=== PATIENT | female | born 1950 | race Caucasian/White ===

== ENCOUNTER → 2017-08-07 | Outpatient (CLI) | payer MEDICARE ==
--- NOTE | 2017-08-14 08:26 | MM ---
Reason for exam: additional evaluation requested from prior study. Last mammogram was performed 13 years and 1 month ago. History: Patient is postmenopausal and has history of high-risk lesion on a previous biopsy at age 54. Benign stereotactic core biopsy of the right breast, 2014. High risk right mammotome panel of the right breast, August 31, 2004. Reduction of the left breast. Reduction of the right breast. Took estrogen for 15 years. Took antineoplastic for 5 years beginning at age 54. Physical Findings: Nurse Summary: 1cm nodule in the left breast at 4 o'clock (nurse dw). MG 3D Diag Mammo W/Cad KAMILAH Bilateral CC and MLO view(s) were taken. Prior study comparison: July 22, 2014, mammogram, performed at [facility]. December 30, 2008, mammogram, performed at [facility]. Post surgical changes in the right breast. No significant new findings when compared with previous films. These results were verbally communicated with the patient and result sheet given to the patient on 08/13/17. ASSESSMENT: Benign, BI-RAD 2 RECOMMENDATION: Routine screening mammogram of both breasts in 1 year. Manage on a clinical basis with regard to left palpable abnormality.
--- NOTE | 2017-08-14 08:29 | USB ---
Reason for exam: additional evaluation requested from prior study. History: Patient is postmenopausal and has history of high-risk lesion on a previous biopsy at age 54. Benign stereotactic core biopsy of the right breast, 2015. High risk right mammotome panel of the right breast, August 31, 2004. Reduction of the left breast. Reduction of the right breast. Took estrogen for 15 years. Took antineoplastic for 5 years beginning at age 54. US Breast Limited LT Left limited breast ultrasound including focal area of concern, retroareolar and axilla demonstrates a 0.7 x 0.4 x 0.9cm cystic lesion at 4 o'clock, echoes within, somewhat anterior to expected palpable. These results were verbally communicated with the patient and result sheet given to the patient on 08/13/17. ASSESSMENT: Probably benign, BI-RAD 3 RECOMMENDATION: Ultrasound of the left breast in 6 months. Manage on a clinical basis with regard to left palpable abnormality.
== END | disposition home or self-care (01) ==
LOC: RADMAMWWP 08:50
PROVIDERS: ATTEND Family Medicine
DX: Z08 Encounter for follow-up examination after completed treatment for malignant neoplasm (principal); Z85.3 Personal history of malignant neoplasm of breast
CPT/HCPCS: 77066; 76642; G0279; 77062

== ENCOUNTER → 2017-08-08 | Outpatient (CLI) | payer MEDICARE ==
--- NOTE | 2017-08-08 17:29 | XR ---
EXAMINATION TYPE: XR chest 2V DATE OF EXAM: 08/08/2017 COMPARISON: 07/01/2013 HISTORY: 67-year-old female annual physical, asthma TECHNIQUE: Frontal and lateral views FINDINGS: Heart normal size. Mild elongation thoracic aorta. Mild interstitial prominence is unchanged. No cons olidation or pleural effusion. IMPRESSION: Chronic changes without acute cardiopulmonary process.
== END | disposition home or self-care (01) ==
LOC: RADXRMAIN 12:47
PROVIDERS: ATTEND Family Medicine
DX: J45.31 Mild persistent asthma with (acute) exacerbation (principal)
CPT/HCPCS: 71046

== ENCOUNTER → 2017-10-18 | Outpatient (CLI) | payer MEDICARE ==
[2017-10-18 14:25] VITALS: BMI 29.8
--- NOTE | 2017-10-18 15:03 | P.GSHP ---
History of Present Illness H&P Date: 10/18/17 The patient is a 67-year-old white female who presents for breast evaluation. 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 She had wide excision of this area and then reexcision after being seen for a second opinion. Following the reexcision she took tamoxifen for 5 years. She did not have radiation to the breast. She did have bilateral breast reductions done in 1989. She also had a benign stereotactic right breast biopsy in 2014. The patient most recently had a mammogram [id number]. This mammogram had no significant new findings compared to old films however the nurse felt a 1 cm nodule in the left breast at 4:00. An ultrasound of the left breast was then performed which revealed a 0.9 cm cystic lesion at 4:00 felt to be somewhat anterior to the expected palpable lesion. This was felt to be probably benign an ultrasound of the left breast in 6 months was recommended. The patient states that she did have some trauma to the left breast prior to the ultrasound where she bumped the breast and it became ecchymotic. The patient has no nipple discharge or changes. The patient drinks 2-3 cups of coffee per day. The patient rarely eats chocolate. She does not drink soda. She does not smoke and does not live with a smoker. Family history: 1. mother: colon cancer 2. father: laryngeal cancer 3. maternal grandmother: bladder cancer 4. paternal grandmother: cervical cancer 5. 4 siblings wiht skin cancer 6. of esophageal cancer exposed to agent orange Hormonal History: menarche: 12 : 3, 2 children, first at 23, breast fed: yes menopause: MICHAEL, still has ovaries, started menopause at 40 BCP: yes about 13 years Estrogen:took estrogen for 15 years Past surgical history: 1. tonsil and adenoids 2. total abdominal hysterectomy 3. breast reduction, bilateral 4. lumpectomy and re-excision 5. left knee 2008 Past Medical History: 1. pneumonia 2. asthma 3. back pain Social History: smoke: no alcohol: no drugs: no - Constitutional Constitutional: Denies chills, Denies fever - EENT Eyes: denies blurred vision, denies pain Ears: right: decreased hearing, deny: tinnitus Ears, nose, mouth and throat: Denies headache, Denies sore throat - Breasts Breasts: bilateral: as per HPI - Cardiovascular Cardiovascular: Reports high blood pressure, Denies chest pain, Denies shortness of breath - Respiratory Comment: history of pneumonia, asthma Respiratory: Denies cough, Denies 7 - Gastrointestinal Comment: last colonoscopy done 1 year ago all [place] Gastrointestinal: Denies abdominal pain, Denies diarrhea, Denies nausea, Denies vomiting - Genitourinary (Female) Genitourinary: Denies dysuria, Denies hematuria - Musculoskeletal Comment: arthritis and back pain - Integumentary Integumentary: Denies pruritus, Denies rash - Neurological Neurological: Denies numbness, Denies weakness - Psychiatric Psychiatric: Reports depression, Denies anxiety - Endocrine Endocrine: Denies fatigue, Denies weight change - Hematologic/Lymphatic Comment: no blood thinners, bleeds easily - Allergic/Immunologic Allergic/Immunologic: Reports seasonal allergies Past Medical History Past Medical History: Asthma, GERD/Reflux, Hyperlipidemia, Hypertension, Pneumonia History of Any Multi-Drug Resistant Organisms: None Reported Past Surgical History: Adenoidectomy, Breast Surgery, Hysterectomy, Tubal Ligation Additional Past Surgical History / Comment(s): BREAST REDUCTION , BREAST SURGERY X2 Past Anesthesia/Blood Transfusion Reactions: Postoperative Nausea & Vomiting ( PONV) Additional Past Anesthesia/Blood Transfusion Reaction / Comment(s): "TAKES LONGER WAKING UP" Smoking Status: Never smoker - Past Family History Mother Family Medical History: Cancer Additional Family Medical History / Comment(s): COLON CANCER Father Family Medical History: Cancer Additional Family Medical History / Comment(s): LARYNGEAL CANCER Medications and Allergies Home Medications Medication Instructions Recorded Confirmed Type Albuterol Inhaler [Ventolin Hfa 1 - 2 puff INHALATION Q6HR PRN 12/28/15 History Inhaler] Ezetimibe [Zetia] 10 mg PO DAILY 12/28/15 10/18/17 History Lovastatin [Mevacor] 40 mg PO DAILY 12/28/15 10/18/17 History Mometasone Furoate [Asmanex Hfa] 1 puff INHALATION DAILY 12/28/15 10/18/17 History Multivitamins, Thera [Multivitamin] 1 tab PO DAILY 12/28/15 10/18/17 History Omeprazole [PriLOSEC] 20 mg PO [facility] 12/28/15 10/18/17 History Ubidecarenone [Co Q-10] 100 mg PO DAILY 12/28/15 10/18/17 History Valsartan/Hydrochlorothiazide 1 each PO DAILY 12/28/15 10/18/17 History [Valsartan-Hctz 160-25 mg Tab] Allergies Allergy/AdvReac Type Severity Reaction Status Date / Time adhesive tape Allergy BLISTERS,RED Verified 12/29/15 11:18 SKIN Milk Containing Products Allergy HEADACHE Verified 12/29/15 11:18 Surgical - Exam - General well developed, well nourished, no distress - Eyes normal ocular movement, no icteric - ENT no hearing loss, no congestion - Neck no masses, trachea midline - Respiratory normal respiratory effort, clear to auscultation - Cardiovascular Rhythm: regular Heart Sounds: normal: S1, S2 - Abdomen Abdomen: soft, non tender, no guarding, no rigid, no rebound - Neurologic no disoriented, no combative - Musculoskeletal normal gait, normal posture - Psychiatric oriented to time, oriented to person, oriented to place, speech is normal, memory intact Breast examination: Right breast: Patient status post prior reduction mammoplasty and lumpectomy well-healed scars from prior surgery, multiple positional examination no dominant masses or nodules of concern Right axilla: No adenopathy of concern Left breast: Patient status post reduction mammoplasty well-healed scars from prior surgery, fibrocystic changes, at approximately the 4 o'clock position there is a proximally 1 cm nodular area near the area of the area may or may not correspond to a cystic lesion seen on ultrasound Left axilla: No adenopathy of concern Results Patient's radiographic reports reviewed Assessment and Plan Assessment: Impression/plan: 1. Palpable abnormality left breast 2. 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 Status post bilateral breast reductions 5. Hypertension 6. Arthritis 7. Back pain line 8. Asthma 9. History of pneumonia Plan: 1. Attempted aspiration of palpable abnormality in left breast that this is a cystic lesion will follow conservatively if this is not a cystic lesion would recommend core biopsy of palpable abnormality 2. Medical management of medical problems 3. Ultrasound follow-up of left breast in 6 months time as palpable lesion may not correspond to that seen on ultrasound The skin benefits of fine-needle aspiration discussed with the patient we will perform this depending on results of this if there is not resolution of the cystic lesion would recommend core biopsy of the palpable abnormality. Cc: Megan Reese
--- NOTE | 2017-10-18 15:11 | P.PCN ---
Date of Procedure: 10/18/17 Preoperative Diagnosis: Nodule 4 o'clock position left breast periareolar area Postoperative Diagnosis: SAME Procedure(s) Performed: Fine-needle aspiration nodular area left breast Anesthesia: none Surgeon: Mouna Eden Estimated Blood Loss (ml): 0 Pathology: other (FNA cytology from left breast at 4 o clock) Condition: stable Disposition: same day Description of Procedure: The area of palpable abnormality at 4:00 in the left breast was prepped using alcohol. A 22-gauge 10 mL needle was used to aspirate cells from this area. No cystic fluid was noted or removed and no resolution of the nodule was noted. The cells were sent for cytology. The patient tolerated the procedure in stable condition a Band-Aid was applied.
== END | disposition home or self-care (01) ==
LOC: WWCWWP 14:03
PROVIDERS: ATTEND Surgery
DX: N63.0 Unspecified lump in unspecified breast (principal)
CPT/HCPCS: 88173

== ENCOUNTER → 2018-04-03 | Outpatient (CLI) | payer MEDICARE ==
--- NOTE | 2018-04-03 11:27 | USB ---
Reason for exam: clinical finding. History: Patient is postmenopausal and has history of high-risk lesion on a previous biopsy at age 54. Benign stereotactic core biopsy of the right breast, 2015. High risk right mammotome panel of the right breast, August 31, 2004. Reduction of the left breast. Reduction of the right breast. Took estrogen for 15 years. Took antineoplastic for 5 years beginning at age 54. Indicated problem(s): palpable abnormality in the left breast. Physical Findings: Nurse Summary: 1cm firm, movable, 4 o'clock (nurse dw). US Breast LT Left complete breast ultrasound includes all four quadrants, the retroareolar region and axilla. Finding demonstrates a 0.8 x 0.4 x 0.7cm mixed lesion at 4 o'clock and a 0.4 x 0.3 x 0.3cm lesion too small to characterize at 4 o'clock. These results were verbally communicated with the patient and result sheet given to the patient on 04/03/18. ASSESSMENT: Suspicious, BI-RAD 4 RECOMMENDATION: Ultrasound core biopsy of the left breast. (x2) Called Hugh with mammographic findings and has scheduled an appointment for the patient for 04/12/18 at 4:[address] Eden. Biopsy scheduled for 04/18/18 at 2:00. PRELIMINARY REPORT CALLED AND FAXED TO DR. EDEN ON 04/03/18.
== END | disposition home or self-care (01) ==
LOC: RADUSWWP 10:08
PROVIDERS: ATTEND Family Medicine
DX: Z08 Encounter for follow-up examination after completed treatment for malignant neoplasm (principal); Z85.3 Personal history of malignant neoplasm of breast

== ENCOUNTER → 2018-04-12 | Outpatient (CLI) | payer MEDICARE ==
[2018-04-12 16:38] VITALS: BP 129/82; PULSE 73; RESP 18; TEMP 98.1; BMI 29.0
--- NOTE | 2018-04-12 17:11 | P.PN ---
Subjective Progress Note Date: 04/12/18 Principal diagnosis: Lucille is a 67-year-old white female who presents for breast evaluation. On April 03 she underwent an ultrasound of the left breast which revealed 2 areas which were of concern was recommended to undergo ultrasound-guided core biopsies of both of these areas. She does feel an area of nodularity in the 4 o 'clock position of the left breast. She states the nodularities been present for approximately 6 months. She did undergo an FNA of the left breast in September 2017 which was nondiagnostic but no atypical cells were seen and she is therefore followed conservatively. 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 She had wide excision of this area and then reexcision incision after being seen for a second opinion. Following the reexcision she took tamoxifen for 5 years. She did not have radiation to the breast. She did have bilateral breast reductions done in 1989. She also had a benign stereotactic right breast biopsy in 2014. The patient's most recent bilateral mammogram [place] [id number]. The mammogram had no significant new findings compared to old films. The nurse however at that time fell to 1 cm nodule in the left breast at approximately the 4 o'clock position. An ultrasound of this area was then performed which revealed a cystic lesion thought to be somewhat anterior to the palpable mass. This was felt to be probably benign and repeat left breast ultrasound in 6 months was recommended. Prior to the mammogram at that time she had walked into it before and developed some bruising of the breast. The patient denies any nipple discharge or skin changes. The patient drinks a minimum of 3 cups of coffee per day. She relates chocolate. She does not drink soda. She does not smoke and is not exposed to second hand smoke. Family history: 1. Mother: Colon cancer 2. Father: Laryngeal cancer 3. Maternal grandmother: Bladder cancer 4. Paternal grandmother: Cervical cancer 5. 4 siblings with skin cancer 6. of esophageal cancer exposed to agent orange Hormonal history: Menarche: 12 Pregnancies: 3, 2 children, first a 23, breast-fed: Yes Menopause: Hysterectomy, still has ovaries, started menopause at 48 control pills: Yes approximately 13 years Hormones: Took estrogen for approximately 15 years Past surgical history: 1. Tonsils and adenoids removed 2. Hysterectomy 3. Breast reduction bilateral 4. Lumpectomy and reexcision 5. Knee surgery 2007 Past medical history: 1. Pneumonia 2. Asthma 3. Back pain Some social history: Smoking: Negative Alcohol: Negative Drugs: Negative Review of systems: Constitutional: Negative HEENT: Negative lungs: History of pneumonia, asthma in the past Heart: Hypertension GI: Negative : Status post hysterectomy Musculoskeletal: Mild arthritis Integument: Negative Endocrine: Negative Hematologic: negative Objective - Vital Signs Vital signs: Vital Signs Temp 98.1 F 04/12/18 16:34 Pulse 73 04/12/18 16:34 Resp 18 04/12/18 16:34 BP 129/82 04/12/18 16:34 Pulse Ox 98 04/12/18 16:34 Intake & Output 04/11/18 04/12/18 04/12/18 18:59 06:59 18:59 Weight 81.647 kg - Exam BMI 29.1 - Constitutional General appearance: Present: average body habitus - EENT Eyes: Present: EOMI ENT: Present: hearing grossly normal - Neck Neck: Present: normal ROM - Respiratory Respiratory: bilateral: CTA - Cardiovascular Rhythm: regular Heart sounds: normal: S1, S2 - Gastrointestinal General gastrointestinal: Present: soft - Integumentary Integumentary: Present: normal turgor - Musculoskeletal Musculoskeletal: Present: gait normal - Psychiatric Psychiatric: Present: A&O x's 3, appropriate affect, intact judgment & insight - Additional findings Additional findings: Breast examination: Right breast: Multi-positional exam scar tissue noted from prior reduction mammoplasty No dominant masses or nodules of concern, fibrocystic changes Right axilla: No adenopathy of concern Left breast: Scar related to prior reduction mammoplasty Increased nodularity of 4 o'clock position in the area of ultrasound abnormality Left axilla: No adenopathy of concern Assessment and Plan Assessment: Impression: 1. Radiographic abnormality left breast at 4:00 2 sites 2. Fibrocystic breast changes 3. Prior right breast excisional lumpectomy and tamoxifen and no radiation therapy for possible DCIS 4. Family history of cancer 5. History of asthma 6. nodule left breast Plan: 1. left breast core biopsy two sites 2. open removal of palpable nodule in the left breast 3. Medical management of medical conditions 4. Follow-up 1 week after core biopsy CC: Dr. Reese
== END | disposition home or self-care (01) ==
LOC: WWCWWP 15:47
PROVIDERS: ATTEND Surgery
DX: Z53.9 Procedure and treatment not carried out, unspecified reason (principal)

== ENCOUNTER → 2018-04-18 | Day surgery (SDC) | payer MEDICARE ==
[2018-04-18 13:35] VITALS: RESP 16; TEMP 98.5; BMI 29.0
[2018-04-18 15:08] VITALS: BP 86/63; PULSE 78
--- NOTE | 2018-04-18 15:13 | USB ---
EXAMINATION TYPE: US biopsy breast VAD LT, US biopsy breast add'l VAD LT, MG diagnostic mammo LT wo CAD DATE OF EXAM: 04/18/2018 CLINICAL HISTORY: R92.8 PREV ABN MAMMO.. Prior abnormal ultrasound. TECHNIQUE: Ultrasound guided core biopsy of left breast with 2 sites and subsequent clip placement both lesions and diagnostic mammogram after procedures. COMPARISON: Left breast US 04/03/2018 and older studies. FINDINGS: The procedure of ultrasound guided core biopsy was explained to the patient. Benefits, alternatives, and risks were discussed. An informed consent was then obtained. Preprocedure ultrasound redemonstrates to nearby lesions 4:00 position zone B the, smaller measuring 3 to 4 mm in larger oval better defined measuring 8 mm long axis. The patient was placed in supine positioning for imaging and for the procedure. The overlying skin was prepped and draped in usual sterile fashion. Lidocaine buffered with bicarbonate was used as anesthetic into the skin and subcutaneous tissue up to area of concern in the left breast. Under ultrasound guidance, a 12-gauge vacuum assisted biopsy gun device was used to obtain 2 core samples of larger lesion and 3 core samples of smaller lesions. Following this, a biopsy clip was left in each lesion. Both lesions became smaller less well-seen after sampling. The patient tolerated the procedure well without any immediate complication. The patient was kept in the radiology department for short stay after the procedure and then discharged home in stable condition. Postprocedure mammogram shows successful deployment of both clips. IMPRESSION: Successful, uncomplicated ultrasound guided core biopsy of 2 areas of concern in the left breast, full pathology results to follow. Low index of suspicion noted for both lesions at time of procedure. Pathology Results: Benign A. LEFT BREAST, SITE A, ULTRASOUND GUIDED CORE BIOPSY: Fat necrosis with scar and chronic inflammation. Negative for malignancy. B. LEFT BREAST, SITE B, ULTRASOUND GUIDED CORE BIOPSY: Fat necrosis with scar, chronic inflammation and calcifications. Negative for malignancy. Recommendation Follow up mammogram of the left breast in 6 months. SONYD
== END ==
LOC: RADUSWWP 12:58
PROVIDERS: ATTEND Surgery
DX: N64.1 Fat necrosis of breast (principal); N61.0 Mastitis without abscess; R92.1 Mammographic calcification found on diagnostic imaging of breast; R92.8 Other abnormal and inconclusive findings on diagnostic imaging of breast; Z91.011 Allergy to milk products; Z91.09 Other allergy status, other than to drugs and biological substances
CPT/HCPCS: 88305; 77065; 19083; 19084; A4648; J2001

== ENCOUNTER → 2018-04-25 | Outpatient (CLI) | payer MEDICARE ==
[2018-04-25 15:34] VITALS: BP 121/79; PULSE 85; RESP 16; TEMP 97.6; BMI 29.0
--- NOTE | 2018-04-25 16:22 | P.PN ---
Subjective Progress Note Date: 04/25/18 Principal diagnosis: Fat necrosis, chronic inflammation The patient is a 67-year-old white female who presented for breast evaluation secondary to an ultrasound which revealed 2 areas of concern was recommended to undergo ultrasound-guided core biopsies of both these areas. concern was the fact that she did undergo an FNA of the left breast in September 2017 which was nondiagnostic but no atypical cells were seen. 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 She had wide excision of that area and then reexcision after being seen for a second opinion. Following the reexcision she took tamoxifen for 5 years. She did not have radiation to the breast. She had bilateral breast reductions done in 1989. She had a benign stereotactic right breast biopsy in 2014. On her initial evaluation on there was some concern about some palpable change at 4 o'clock position of the left breast. However following ultrasound core biopsy of the area of palpable abnormality has resolved. Objective - Vital Signs Vital signs: Vital Signs Temp 97.6 F 04/25/18 15:31 Pulse 85 04/25/18 15:31 Resp 16 04/25/18 15:31 BP 121/79 04/25/18 15:31 Pulse Ox 95 04/25/18 15:31 Intake & Output 04/24/18 04/25/18 04/25/18 18:59 06:59 18:59 Weight 81.647 kg - Exam BMI 29.1 - Constitutional General appearance: Present: average body habitus - EENT Eyes: Present: EOMI ENT: Present: hearing grossly normal - Neck Neck: Present: normal ROM - Respiratory Respiratory: - Cardiovascular Heart sounds: - Gastrointestinal General gastrointestinal: Present: soft - Integumentary Integumentary: Present: normal turgor - Musculoskeletal Musculoskeletal: Present: gait normal - Psychiatric Psychiatric: Present: A&O x's 3, appropriate affect, intact judgment & insight - Additional findings Additional findings: Examination of the left breast reveals core biopsy site clean and dry, no Evidence of any infection Assessment and Plan Assessment: Impression: 1. Patient status post core biopsy left breast pathology benign consistent with fat necrosis 2. Patient status post excisional lumpectomy tamoxifen right breast for DCIS possible 3. Family history of cancer 4. History of asthma 5. Resolved nodule left breast Plan: 1. Left breast core biopsy 2 sites benign 2. No palpable abnormality at this time for removal 3. Medical management of medical conditions 3. Follow-up July with bilateral mammogram and physician exam at that time Cc: Dr. Reese
== END | disposition home or self-care (01) ==
LOC: WWCWWP 14:54
PROVIDERS: ATTEND Surgery
DX: Z53.9 Procedure and treatment not carried out, unspecified reason (principal)

== ENCOUNTER → 2018-08-12 | Outpatient (CLI) | payer MEDICARE ==
--- NOTE | 2018-08-12 11:55 | MM ---
Reason for exam: follow-up at short interval from prior study. Last mammogram was performed 4 months ago. History: Patient is postmenopausal and has history of high-risk lesion on a previous biopsy at age 54. Benign US biopsy breast VAD LT of the left breast, April 18, 2018. Benign US biopsy breast add'l VAD LT of the left breast, April 18, 2018. Benign stereotactic core biopsy of the right breast, 2014. High risk right mammotome panel of the right breast, August 31, 2004. Reduction of the left breast. Reduction of the right breast. Took estrogen for 15 years. Took antineoplastic for 5 years beginning at age 54. Physical Findings: Nurse did not find any significant physical abnormalities on exam. MG 3D Diag Mammo W/Cad KAMILAH Bilateral CC and MLO view(s) were taken. Prior study comparison: April 18, 2018, left breast MG diagnostic mammo LT wo CAD. August 07, 2017, bilateral MG 3d diag mammo w/cad KAMILAH. There are scattered fibroglandular densities. Previous mammotome biopsy in the right and left breast. Post surgical change in the right breast. Chronic focal asymmetry anterior left breast. No significant new findings when compared with previous films. These results were verbally communicated with the patient and result sheet given to the patient on 08/12/18. ASSESSMENT: Benign, BI-RAD 2 RECOMMENDATION: Routine screening mammogram of both breasts in 1 year.
== END | disposition home or self-care (01) ==
LOC: RADMAMWWP 09:35
PROVIDERS: ATTEND Surgery
DX: R92.8 Other abnormal and inconclusive findings on diagnostic imaging of breast (principal)
CPT/HCPCS: 77066; G0279; 77062

== ENCOUNTER → 2018-08-16 | Outpatient (CLI) | payer MEDICARE ==
[2018-08-16 11:05] VITALS: BP 130/84; PULSE 66; RESP 16; TEMP 98; BMI 29.0
--- NOTE | 2018-08-16 11:33 | P.PN ---
Subjective Progress Note Date: 08/16/18 Lucille is a 68-year-old white female who presents for breast evaluation. She underwent bilateral breast reduction in 1989. 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 She had wide excision of this area and then a repeat ex ploratory excision after being seen for a second opinion, the reexcision was done at [facility]. She then took tamoxifen for 5 years. She did not have any radiation to the breast. She has had additional core biopsies since that time which have always been benign. March 2018 the patient underwent ultrasound- guided core biopsy of 2 areas of concern in the left breast both of which revealed fat necrosis with scarring chronic inflammation both were negative for malignancy. She has no concerns now about her breast. The patient denies any masses or nodules in her breast. Family history: 1. Father: Laryngeal cancer 2. Mother: Colon cancer 3. Patient: Possible ductal carcinoma in situ of the breast 4. 3 Paternal uncle: Lung cancer 5. maternal grandmother: bladder cancer Hormonal history: Menarche: 13 1 miscarriage, breast fed: yes, first born at 24 menopause: 38, partial hysterectomy prior BCP: 20 years hormones: following hysterectomy 20 years Surgical History: 1. Right breast lumpectomy 2. T&A 3. bilateral breast reduction 4. left knee 5. hysterctomy Medical History: 1. HTN 2. mild asthma 3. high cholesterol Social History: smoke: none alcohol: none drugs: none Review of systems: Constitutional: Negative Lungs: Mild asthma Heart: Hypertension GI: Negative : Status post hysterectomy Musculoskeletal: Mild arthritis Integument: Negative Psychiatric:anxiety since and son Social History: Objective - Vital Signs Vital signs: Vital Signs Temp 98.0 F 08/16/18 11:00 Pulse 66 08/16/18 11:00 Resp 16 08/16/18 11:00 BP 130/84 08/16/18 11:00 Pulse Ox 98 08/16/18 11:00 Intake & Output 08/15/18 08/16/18 08/16/18 18:59 06:59 18:59 Weight 81.647 kg - Exam BMI 29.1 - Constitutional General appearance: Present: average body habitus - EENT Eyes: Present: EOMI ENT: Present: hearing grossly normal - Neck Neck: Present: normal ROM - Respiratory Respiratory: bilateral: CTA - Cardiovascular Rhythm: regular Heart sounds: normal: S1, S2 - Gastrointestinal Gastrointestinal Comment(s): no guarding or rebound General gastrointestinal: Present: soft - Integumentary Integumentary: Present: normal turgor - Musculoskeletal Musculoskeletal: Present: gait normal - Psychiatric Psychiatric: Present: A&O x's 3, appropriate affect, intact judgment & insight - Additional findings Additional findings: breast exam: right breast: Multiple positional exam fibrocystic changes, well-healed scars from prior breast reduction, no dominant masses or nodules of concern Right axilla: No adenopathy of concern Left breast: Reveals scars from prior reduction mammoplasty, no dominant masses or nodules this concern, fibrocystic changes no evidence of any tumors Left axilla: No adenopathy of concern Assessment and Plan Assessment: Impression: 1. HTN 2. mild asthma 3. high cholesterol 4. 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 Family history of cancer 7. Fibrocystic breast changes Plan: 1. Bilateral mammogram in 1 year 2. Medical management of medical conditions 3. Follow-up in 1 year CC: Dr. Reese
== END ==
LOC: WWCWWP 10:33
PROVIDERS: ATTEND Surgery
DX: Z53.9 Procedure and treatment not carried out, unspecified reason (principal)

== ENCOUNTER → 2019-03-24 | Outpatient (CLI) | payer MEDICARE ==
--- NOTE | 2019-03-24 10:43 | BD ---
EXAMINATION TYPE: Axial Bone Density DATE OF EXAM: 03/24/2019 COMPARISON: NONE CLINICAL HISTORY: Z 78.0 Height: 66 Weight: 186.8 FRAX RISK QUESTIONS: Alcohol (3 or more units per day): no Family History (Parent hip fracture): no Glucocorticoids (More than 3mos): no (Ex: prednisone, prednisolone, methylprednisolone, dexamethasone, and hydrocortisone). History of Fracture in Adulthood: yes Secondary Osteoporosis: 1. Type 1 Diabetes: no 2. Hyperthyroidism: no 3. Menopause before 45: yes 4. Malnutrition: no 5. Chronic liver disease: no Rheumatoid Arthritis: no Current Tobacco Use: no RISK FACTORS HISTORY OF: Family History of Osteoporosis: yes Active: yes Diet low in dairy products/other sources of calcium: yes Postmenopausal woman: partial hysterectomy age 38 Lost more than 2 inches in height since high school: no MEDICATIONS: losartan, Zetia, losartan, water pill, Prilosec, Aricept Additional History: EXAM MEASUREMENTS: Bone mineral densitometry was performed using the [employer] [facility]. Bone mineral density as measured about the Lumbar spine is: ----- L1-L4(G/cm2): 1.047 T Score Values are as follows: ----- L2: -1.3 ----- L3: -0.8 ----- L4: -0.9 ----- L1-L4: -1.1 Bone mineral density : baseline Bone mineral density about the R hip (g/cm2): 0.971 Bone mineral density about the L hip (g/cm2): 0.965 T Score values are as follows: -----R Neck: -0.5 -----L Neck: -0.5 -----R Total: -0.3 -----L Total: 0.1 Bone mineral density : baseline IMPRESSION: Normal (Values between +1 and -1 indicate normal bone mass). Borderline values for osteopenia. Consi jo-ann repeating this study in 5 years or sooner if there is some new clinical indication. NOTE: T-SCORE=SD OF THE YOUNG ADULT MEAN.
== END | disposition home or self-care (01) ==
LOC: RADBDWWP 09:08
PROVIDERS: ATTEND Family Medicine
DX: M85.80 Other specified disorders of bone density and structure, unspecified site (principal); Z78.0 Asymptomatic menopausal state
CPT/HCPCS: 77080

== ENCOUNTER → 2019-08-18 | Outpatient (CLI) | payer MEDICARE ==
--- NOTE | 2019-08-19 08:28 | MM ---
Reason for exam: screening (asymptomatic). Last mammogram was performed 1 year ago. History: Patient is postmenopausal and has history of high-risk lesion on a previous biopsy at age 54. Benign US biopsy breast VAD LT of the left breast, April 18, 2018. Benign US biopsy breast add'l VAD LT of the left breast, April 18, 2018. Benign stereotactic core biopsy of the right breast, 2014. High risk right mammotome panel of the right breast, August 31, 2004. Reduction of the left breast. Reduction of the right breast. Took estrogen for 15 years. Took antineoplastic for 5 years beginning at age 54. Physical Findings: A clinical breast exam by your physician is recommended on an annual basis and results should be correlated with mammographic findings. MG 3D Screening Mammo W/Cad Bilateral CC and MLO view(s) were taken. Prior study comparison: August 12, 2018, bilateral MG 3d diag mammo w/cad KAMILAH. April 18, 2018, left breast MG diagnostic mammo LT wo CAD. The breast tissue is heterogeneously dense. This may lower the sensitivity of mammography. Stable post operative distorion right breast. No significant changes when compared with prior studies. ASSESSMENT: Benign, BI-RAD 2 RECOMMENDATION: Routine screening mammogram of both breasts in 1 year.
== END | disposition home or self-care (01) ==
LOC: RADMAMWWP 08:58
PROVIDERS: ATTEND Surgery
DX: Z12.31 Encounter for screening mammogram for malignant neoplasm of breast (principal)
CPT/HCPCS: 77063; 77067

== ENCOUNTER → 2020-08-20 | Outpatient (CLI) | payer MEDICARE ==
--- NOTE | 2020-08-25 14:26 | MM ---
Reason for exam: screening (asymptomatic). Last mammogram was performed 1 year ago. History: Patient is postmenopausal and has history of high-risk lesion on a previous biopsy at age 54. Benign US biopsy breast VAD LT of the left breast, April 18, 2018. Benign US biopsy breast add'l VAD LT of the left breast, April 18, 2018. Benign stereotactic core biopsy of the right breast, 2014. High risk right mammotome panel of the right breast, August 31, 2004. Reduction of the left breast. Reduction of the right breast. Took estrogen for 15 years. Took antineoplastic for 5 years beginning at age 54. Physical Findings: A clinical breast exam by your physician is recommended on an annual basis and results should be correlated with mammographic findings. MG 3D Screening Mammo W/Cad Bilateral CC and MLO view(s) were taken. XCCL view(s) were taken of the left breast. Prior study comparison: August 18, 2019, bilateral MG 3d screening mammo w/cad. August 12, 2018, bilateral MG 3d diag mammo w/cad KAMILAH. There are scattered fibroglandular densities. Previous mammotome biopsy in the right and left breast x 2. Reduction mammoplasty changes bilaterally and post excisional changes right breast. No significant changes when compared with prior studies. ASSESSMENT: Benign, BI-RAD 2 RECOMMENDATION: Routine screening mammogram of both breasts in 1 year.
== END | disposition home or self-care (01) ==
LOC: RADMAMWWP 07:31
PROVIDERS: ATTEND Surgery
DX: Z12.31 Encounter for screening mammogram for malignant neoplasm of breast (principal); Z78.0 Asymptomatic menopausal state
CPT/HCPCS: 77063; 77067

== ENCOUNTER → 2020-08-26 | Outpatient (CLI) | payer MEDICARE ==
--- NOTE | 2020-08-26 11:13 | P.PN ---
Subjective Progress Note Date: 08/26/20 Principal diagnosis: fibrocystic breast disease Lucille is a 70-year-old white female who presents for breast evaluation. She underwent bilateral breast reduction in 1989. 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 She had wide excision of this area and then a repeat exploratory excision after being seen for a second opinion, the reexcision was done at [facility]. She then took tamoxifen for 5 years. She did not have any radiation to the breast. She has had additional core biopsies since that time which have always been benign. March 2018 the patient underwent ultrasound-guided core biopsy of 2 areas of concern in the left breast both of which revealed fat necrosis with scarring chronic inflammation both were negative for malignancy. Her most recent mammogram is a bilateral screening mammogram on 08-20-20 which was benign BIRAD 2. She has no concerns now about her breast. The patient denies any masses or nodules in her breast. Family history: 1. Father: Laryngeal cancer 2. Mother: Colon cancer 3. Patient: Possible ductal carcinoma in situ of the breast 4. 3 Paternal uncle: Lung cancer 5. maternal grandmother: bladder cancer 6. niece breast cancer at 43 Hormonal history: Menarche: 13 1 miscarriage, breast fed: yes, first born at 24 menopause: 38, partial hysterectomy prior BCP: 20 years hormones: following hysterectomy 20 years Surgical History: 1. Right breast lumpectomy 2. T&A 3. bilateral breast reduction 4. left knee partial noe cap removed 5. hysterctomy/ ovaries not removed Medical History: 1. HTN 2. mild asthma 3. high cholesterol 4. decreased memory Social History: smoke: none alcohol: none drugs: Occasional marijuana Review of systems: Constitutional: Negative Lungs: Mild asthma Heart: Hypertension GI: Negative : Status post hysterectomy done for bleeding no cancer Musculoskeletal: Mild arthritis Integument: Negative Psychiatric:anxiety since and son ; stopped medication about 5 months ago Objective - Constitutional General appearance: Present: average body habitus - EENT Eyes: Present: EOMI ENT: Present: hearing grossly normal - Neck Neck: Present: normal ROM - Respiratory Respiratory: bilateral: CTA - Cardiovascular Rhythm: regular Heart sounds: normal: S1, S2 - Gastrointestinal General gastrointestinal: Present: soft - Integumentary Integumentary: Present: normal turgor - Musculoskeletal Musculoskeletal: Present: gait normal - Psychiatric Psychiatric: Present: A&O x's 3, appropriate affect, intact judgment & insight - Additional findings Additional findings: Breast exam: BRA: 44D inspection: Well-healed scars from prior bilateral breast reduction Palpation: Right breast: Multiple positional exam fibrocystic changes, no dominant masses or nodules of concern Right axilla: No adenopathy of concern Left breast: Multiple positional exam fibrocystic changes no dominant masses or nodules of concern Left axilla: No adenopathy of concern Assessment and Plan Assessment: Impression: 1. HTN 2. mild asthma 3. high cholesterol 4. decreased memory 5. Bilateral fibrocystic breast changes 6. Recent bilateral mammogram 7to21 benign BIRADS 2 Plan: 1. Repeat bilateral mammogram in 1 year with physician exam at that time Cc: Dr. Reese
[2020-08-26 11:18] VITALS: BP 146/90; PULSE 69; RESP 18; TEMP 97.9
== END ==
LOC: WWCWWP 10:54
PROVIDERS: ATTEND Surgery
DX: N60.11 Diffuse cystic mastopathy of right breast (principal); N60.12 Diffuse cystic mastopathy of left breast; I10 Essential (primary) hypertension; J45.909 Unspecified asthma, uncomplicated; E78.00 Pure hypercholesterolemia, unspecified; R41.3 Other amnesia; Z91.048 Other nonmedicinal substance allergy status; Z91.011 Allergy to milk products; Z79.899 Other long term (current) drug therapy

== ENCOUNTER 2021-04-28 12:59 | Day surgery (SDC) | payer MEDICARE ==
[2021-04-26 16:23] VITALS: BMI 30.7
[~2021-04-28 12:59] MED LIST: ALBUTEROL NEB (CONC) 2.5 MG/0.5 ML INHALATION ONE; ATROPINE SULFATE 0.4 MG/ML 1 ML VIAL IM ONE; LACTATED RINGERS 1,000 ML IV SCH; LIDOCAINE 2% (PF) 20 MG/ML 5 ML VIAL INHALATION ONE; LIDOCAINE VISCOUS 300 MG/15 ML CUP MUCOUS MEM ONE
[2021-04-28 13:33] VITALS: TEMP 975
[2021-04-28] MEDS ORDERED: ONDANSETRON 4 MG/2 ML VIAL ONE ×2 (13:37→14:13)
[2021-04-28] MEDS ORDERED: LIDOCAINE 1% (10MG/ML) FOR IV START INTRADERMA ONE (13:40)
[2021-04-28 13:45] VITALS: RESP 16
[2021-04-28] MEDS ORDERED: fentaNYL (PF) 50 MCG/ML 2 ML AMP ONE (13:45)
[2021-04-28] MEDS ORDERED: PROPOFOL 10 MG/ML 20 ML VIAL IV ONE (13:45)
[2021-04-28] MEDS ORDERED: LIDOCAINE 1% INJ 10MG/ML (20 ML MDV) ONE (13:45)
[2021-04-28] MEDS ORDERED: LIDOCAINE 2% INJ 20 MG/ML INTRATRACH ONE (14:02)
[2021-04-28] MEDS ORDERED: IV FLUID CONTINUATION 1,000 ML IV ONE ×2 (14:06)
[2021-04-28] MEDS ORDERED: ONDANSETRON 4 MG/2 ML VIAL IVP ONE (14:16)
[2021-04-28 14:31] VITALS: BP 157/92; PULSE 76
[2021-04-29 05:41] LABS: Appearance,BF Cloudy
--- NOTE | 2021-05-02 15:17 | PCN ---
PROCEDURE NOTE DATE OF PROCEDURE: 04/28/2021 PROCEDURE: Bronchoscopy with airway examination, therapeutic lavage and BAL right middle lobe. CAR AUDIO INSTALLER: Dr. Cavazos. PREOPERATIVE DIAGNOSIS: Chronic cough. POSTOPERATIVE DIAGNOSIS: Chronic cough. PROCEDURE DESCRIPTION: The patient was provided general anesthesia by the anesthesia team. There was informed consent and universal timeout. The procedure took place in [facility], room #1. After the patient was adequately sedated and being fully monitored, the bronchoscope was inserted through the right nostril. It passed through the right nasopharynx into the oropharynx. The hypopharynx was identified. The hypopharyngeal structures, including anterior commissure, true cords, false cords, arytenoids, right and left, piriform sinuses, right and left, valleculae and epiglottis were evaluated. All of those structures appeared normal. The glottic opening was topicalized with lidocaine and the bronchoscope was pushed through the glottic opening into the trachea. The trachea appeared normal. Tracheal sahil was sharp. The right and left mainstem were topicalized. The right upper lobe and its 3 segments, the right middle lobe and its 2 segments, the right lower lobe and its 5 segments, the left upper lobe proper and its 2 segments, the lingula and its 2 segments, and the left lower lobe and its 4 segments were all evaluated. The patient had similar findings throughout, which included bronchial airway erythema and hyperemia, mucosal friability and thick secretions. The secretions were suctioned with the assistance of saline lavage. The bronchoscope was wedged into the right middle lobe. The BAL took place. Thirty mL was recovered for evaluation. Any additional secretions at that point were removed. There was no dominant mass or tumor. The bronchoscope was withdrawn. The patient will be recovered. She tolerated the procedure well without complication. MMODL / IJN: [id number] /
== END 2021-04-28 15:09 | disposition home or self-care (01) ==
LOC: ORWHC2ENDO 12:59
PROVIDERS: ATTEND Internal Medicine Critical Care Medicine
DX: R05.3 Chronic cough (principal); E78.5 Hyperlipidemia, unspecified; I10 Essential (primary) hypertension; K21.9 Gastro-esophageal reflux disease without esophagitis; J45.909 Unspecified asthma, uncomplicated
CPT/HCPCS: 31624; 87798 ×3; 87496; 87498; 87529; 88108; 88305; 89050; 87252; 87502; 87634; 87070; 87205; 87116; 87102; 87206; J2001 ×2; J2405; J3010; J2704

== ENCOUNTER → 2021-05-03 | Outpatient (CLI) | payer MEDICARE ==
--- NOTE | 2021-05-03 08:06 | CT ---
EXAMINATION TYPE: CT chest wo con DATE OF EXAM: 05/03/2021 COMPARISON: None. HISTORY: cough CT DLP: 211 mGycm. Automated Exposure Control for Dose Reduction was Utilized. TECHNIQUE: CT scan of the thorax is performed without IV contrast. High resolution CT with 1 mm sequ ences obtained at 10 mm intervals in supine and prone technique. FINDINGS: LUNGS: Slightly suboptimal as patient unable to hold breath. No suspicious focal consolidation or alistair undglass opacity. No concerning masses. No significant peripheral reticulation or fibrosis identified . No pleural effusion or pneumothorax seen. No bronchiectasis is evident. MEDIASTINUM: Lack of IV contrast and technique are noted to limit evaluation for mediastinal and robert cially hilar adenopathy. There are no definitive greater than 1 cm mediastinal lymph nodes. No car diomegaly or pericardial effusion is seen. Coronary artery calcification is present which is noted ma rker for underlying coronary artery disease. OTHER: Surgical changes to the right breast are partially imaged. IMPRESSION: No significant acute or chronic pulmonary process.
== END | disposition home or self-care (01) ==
LOC: RADCTMAIN 06:50
PROVIDERS: ATTEND Internal Medicine Critical Care Medicine
DX: R05.9 Cough, unspecified (principal)
CPT/HCPCS: 71250

== ENCOUNTER → 2021-10-31 | Outpatient (CLI) | payer MEDICARE ==
--- NOTE | 2021-11-04 18:24 | MM ---
Reason for Exam: Screening (asymptomatic). Last mammogram was performed 1 year(s) and 2 month(s) ago. Patient History: Menarche at age 12. First Full-Term at age 23. Hysterectomy at age 37. Postmenopausal. Patient used Estrogen for 15 years. Reduction on the Right side. Reduction on the Left side. 2014, Benign Stereotactic Core Biopsy on the right side. 04/18/2018, Benign Core Biopsy on the left side. 04/18/2018, Benign Core Biopsy on the left side. 08/31/2004, High risk Core Biopsy on the right side. Sister had breast cancer, age 41. Risk Values: Loli 5 year model risk: 5.0%. NCI Lifetime model risk: 13.3%. Prior Study Comparison: 08/12/2018 Bilateral Diagnostic Mammogram, [facility]. 08/18/2019 Bilateral Screening Mammogram, [facility]. 08/20/2020 Bilateral Screening Mammogram, [facility]. Tissue Density: The breast tissue is almost entirely fat. Findings: Analyzed By CAD. Right breast clips. Left biopsy clips. Postsurgical changes of the right breast. There is no suspicious group of microcalcifications or new suspicious mass in either breast. Overall Assessment: Benign, BI-RAD 2 Management: Screening Mammogram of both breasts in 1 year. A clinical breast exam by your physician is recommended on an annual basis and results should be correlated with mammographic findings. Electronically signed and approved by: Vernon York DO
== END | disposition home or self-care (01) ==
LOC: RADMAMWWP 09:54
PROVIDERS: ATTEND Surgery
DX: Z12.31 Encounter for screening mammogram for malignant neoplasm of breast (principal); Z78.0 Asymptomatic menopausal state; Z80.3 Family history of malignant neoplasm of breast
CPT/HCPCS: 77063; 77067

== ENCOUNTER → 2021-11-03 | Outpatient (CLI) | payer MEDICARE ==
[2021-11-03 08:48] VITALS: BP 130/81; PULSE 76; RESP 16; TEMP 97.8
--- NOTE | 2021-11-03 09:10 | P.PN ---
Subjective Progress Note Date: 11/03/21 Principal diagnosis: fibrocystic breast exam fibrocystic breast disease Lucille is a 71-year-old white female who presents for breast evaluation. She underwent bilateral breast reduction in 1989. 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 She had wide excision of this area and then a repeat exploratory excision after being seen for a second opinion, the reexcision was done at [facility]. She then took tamoxifen for 5 years. She did not have any radiation to the breast. She has had additional core biopsies since that time which have always been benign. March 2018 the patient underwent ultrasound-guided core biopsy of 2 areas of concern in the left breast both of which revealed fat necrosis with scarring chronic inflammation both were negative for malignancy. Her most recent mammogram is a bilateral screening mammogram on 10-31-21 which was reviewed with radiology but not yet read, as we are awaiting the ability to bring up her prior mammograms. She has no concerns now about her breast. The patient denies any masses or nodules in her breast. Family history: 1. Father: Laryngeal cancer 2. Mother: Colon cancer 3. Patient: Possible ductal carcinoma in situ of the breast 4. 3 Paternal uncle: Lung cancer 5. maternal grandmother: bladder cancer 6. niece breast cancer at 43 Hormonal history: Menarche: 13 1 miscarriage, breast fed: yes, first born at 24 menopause: 38, partial hysterectomy prior BCP: 20 years hormones: following hysterectomy 20 years Surgical History: 1. Right breast lumpectomy 2. T&A 3. bilateral breast reduction 4. left knee partial noe cap removed 5. hysterctomy/ ovaries not removed 6. bronchoscope for chronic cough Medical History: 1. HTN 2. mild asthma 3. high cholesterol 4. decreased memory 5. COVID vaccines (4), most recent bivalent vaccine done 1 week ago in right arm prior to mammogram Social History: smoke: none alcohol: none drugs: Occasional marijuana Review of systems: Constitutional: Negative Lungs: Mild asthma Heart: Hypertension GI: Negative : Status post hysterectomy done for bleeding no cancer Musculoskeletal: Mild arthritis Integument: Negative Psychiatric:anxiety since and son ; stopped medication about 5 months ago Objective - Vital Signs Vital signs: Vital Signs Temp 97.8 F 11/03/21 08:46 Pulse 76 11/03/21 08:46 Resp 16 11/03/21 08:46 BP 130/81 11/03/21 08:46 Pulse Ox 96 11/03/21 08:46 FiO2 Intake & Output 11/02/21 11/03/21 11/03/21 18:59 06:59 18:59 Weight 89.811 kg - Exam BMI: 32 - Constitutional General appearance: Present: cooperative - EENT Eyes: Present: EOMI ENT: Present: hearing grossly normal - Neck Neck: Present: normal ROM - Respiratory Respiratory: bilateral: CTA - Cardiovascular Rhythm: regular Heart sounds: normal: S1, S2 - Gastrointestinal General gastrointestinal: Present: soft - Integumentary Integumentary: Present: normal turgor - Musculoskeletal Musculoskeletal: Present: gait normal - Psychiatric Psychiatric: Present: A&O x's 3, appropriate affect, intact judgment & insight - Additional findings Additional findings: Breast Exam: BRA; 44D Inspection: Bilateral reduction mammoplasty scars, bilateral grade 2 ptosis, scar right breast from resection of the atypical hyperplasia/questionable DCIS Palpation: Right breast: Multi-positional exam fibrocystic changes no dominant masses or nodules of concern Right axilla: No adenopathy of concern Left breast: Multi-positional exam fibrocystic changes no dominant masses or nodules of concern Left axilla: No adenopathy of concern Assessment and Plan Assessment: Impression: Prior right breast excision of atypical hyperplasia versus DCIS/she did not have any radiation therapy she had initial resection here and then reexcision at [facility] this was done in 2004 Bilateral mammogram 36481 results pending Plan: Obtain results of bilateral mammogram [id number] If this is benign repeat bilateral mammogram in 1 year If there is any concerns patient will be notified CC: Dr. Megan Reese
== END ==
LOC: WWCWWP 08:36
PROVIDERS: ATTEND Surgery
DX: R92.8 Other abnormal and inconclusive findings on diagnostic imaging of breast (principal); I10 Essential (primary) hypertension; J45.909 Unspecified asthma, uncomplicated; E78.00 Pure hypercholesterolemia, unspecified; Z98.890 Other specified postprocedural states; Z91.048 Other nonmedicinal substance allergy status; Z91.011 Allergy to milk products

== ENCOUNTER 2022-02-07 08:08 | Day surgery (SDC) | payer MEDICARE ==
[2022-02-02 15:59] VITALS: BMI 30.7
[~2022-02-07 08:08] MED LIST changes: -ALBUTEROL NEB (CONC) 2.5 MG/0.5 ML INHALATION ONE; -ATROPINE SULFATE 0.4 MG/ML 1 ML VIAL IM ONE; -LACTATED RINGERS 1,000 ML IV SCH; +LIDOCAINE 1% (10MG/ML) FOR IV START INTRADERMA PRN; -LIDOCAINE 2% (PF) 20 MG/ML 5 ML VIAL INHALATION ONE; -LIDOCAINE VISCOUS 300 MG/15 ML CUP MUCOUS MEM ONE; +ONDANSETRON 4 MG/2 ML VIAL IVP PRN
[2022-02-07 08:44] VITALS: RESP 18; TEMP 98.8
[2022-02-07] MEDS: LACTATED RINGERS 1,000 ML IV SCH ×2 (08:53→09:38)
[2022-02-07] MEDS ORDERED: LIDOCAINE 2% INJ 20 MG/ML (2 ML VIAL) ONE (09:38)
[2022-02-07] MEDS ORDERED: PROPOFOL 10 MG/ML 20 ML VIAL IV ONE (09:38)
--- NOTE | 2022-02-07 09:47 | P.PCN ---
Date of Procedure: 02/07/22 Procedure(s) Performed: BRIEF HISTORY: Patient is a 71-year-old, pleasant, white female scheduled for an upper endoscopy as a part of evaluation of long-standing history of GERD of almost 10 years duration. Currently time to be the omeprazole and she is taking 20 mg once or twice a week. She is scheduled for an upper endoscopy were complicated reflux. PROCEDURE PERFORMED: Esophagogastroduodenoscopy with biopsy. PREOPERATIVE DIAGNOSIS: Long-standing history of GERD. IV sedation per anesthesia. PROCEDURE: After informed consent was obtained, the patient was brought into the endoscopy unit. IV sedation was administered by Anesthesia under continuous monitoring. Initially the Olympus GIF-140 video endoscope was inserted into the mouth. Esophagus intubated without any difficulty. It was gradually advanced into the stomach and duodenum and carefully examined. The bulb and the second part of the duodenum appeared normal. The scope at this time was withdrawn to the stomach, adequately insufflated with air, and upon careful examination, mucosa of the antrum, had scattered erosions and biopsies were done from this area. Mucosa of the body, cardia and the fundus appeared normal. The scope was then withdrawn into the esophagus. The GE junction was located at 39 cm from the incisors. The esophagus appeared normal. There were 2 superficial erosions at the GE junction consistent with LA grade a reflux esophagitis. Rest of the esophagus appeared normal and the patient tolerated the procedure well. IMPRESSION: 1. 2 superficial erosions at the GE junction consistent with LA grade A reflux esophagitis. 2. Antral erosive gastritis. RECOMMENDATIONS: The findings of this examination were discussed with the patient well as her family. She was advised to follow with the biopsy results. Advised to continue with omeprazole 20 mg as needed and follow antireflux measures..
[2022-02-07 10:08] VITALS: PULSE 66
[2022-02-07 10:18] VITALS: BP 142/86
== END 2022-02-07 10:37 | disposition home or self-care (01) ==
LOC: ORWHC2ENDO 08:08
PROVIDERS: ATTEND Internal Medicine Gastroenterology
DX: K29.50 Unspecified chronic gastritis without bleeding (principal); K21.00 Gastro-esophageal reflux disease with esophagitis, without bleeding; I10 Essential (primary) hypertension; E78.5 Hyperlipidemia, unspecified; Z79.899 Other long term (current) drug therapy; Z98.82 Breast implant status; Z98.890 Other specified postprocedural states; Z90.710 Acquired absence of both cervix and uterus; Z91.040 Latex allergy status; Z90.89 Acquired absence of other organs
CPT/HCPCS: 88305; 43239; J2704; J2001

== ENCOUNTER → 2022-11-01 | Outpatient (CLI) | payer MEDICARE ==
--- NOTE | 2022-11-02 12:17 | MM ---
Reason for Exam: Screening (asymptomatic). Last screening mammogram was performed 12 month(s) ago. Patient History: Menarche at age 12. First Full-Term at age 23. Hysterectomy at age 37. Postmenopausal. Patient used Estrogen for 15 years. Reduction on the Right side. Reduction on the Left side. 2014, Benign Stereotactic Core Biopsy on the right side. 04/18/2018, Benign Core Biopsy on the left side. 04/18/2018, Benign Core Biopsy on the left side. 08/31/2004, High risk Core Biopsy on the right side. Maternal aunt had breast cancer at or over age 50. Risk Values: Loli 5 year model risk: 2.4%. NCI Lifetime model risk: 6.1%. Prior Study Comparison: 08/18/2019 Bilateral Screening Mammogram, [facility]. 08/20/2020 Bilateral Screening Mammogram, [facility]. 10/31/2021 Bilateral MG 3D screening mammo w/cad, [facility]. Tissue Density: The breast tissue is heterogeneously dense. This may lower the sensitivity of mammography. Findings: Analyzed By CAD. There is no suspicious group of microcalcifications or new suspicious mass in either breast. Overall Assessment: Benign, BI-RAD 2 Management: Screening Mammogram of both breasts in 1 year. . Patient should continue monthly self-breast exams. A clinical breast exam by your physician is recommended on an annual basis. This exam should not preclude additional follow-up of suspicious palpable abnormalities. Note on Loli scores and lifetime risk: 1. A Loli score greater than 3% is considered moderate risk. If this is the case, consider specialist referral to assess eligibility for a risk reducing agent. 2. If overall lifetime risk for the development of breast cancer is 20% or higher, the patient may qualify for future screening with alternating mammogram and breast MRI. Electronically signed and approved by: Garcia Woodson M.D. Radiologis
== END | disposition home or self-care (01) ==
LOC: RADMAMWWP 08:51
PROVIDERS: ATTEND Surgery
DX: Z12.31 Encounter for screening mammogram for malignant neoplasm of breast (principal); Z78.0 Asymptomatic menopausal state; Z80.3 Family history of malignant neoplasm of breast
CPT/HCPCS: 77063; 77067

== ENCOUNTER → 2022-11-09 | Outpatient (CLI) | payer MEDICARE ==
[2022-11-09 09:46] VITALS: BP 135/81; PULSE 67; RESP 17; TEMP 97.9
--- NOTE | 2022-11-09 10:14 | P.PN ---
Subjective Progress Note Date: 11/09/22 fibrocystic breast disease Lucille is a 72-year-old white female who presents for breast evaluation. She u nderwent bilateral breast reduction in 1989. 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 She had wide excision of this area and then a repeat exploratory excision after being seen for a second opinion, the reexcision was done at [facility]. She then took tamoxifen for 5 years. She did not have any radiation to the breast. She has had additional core biopsies since that time which have always been benign. March 2018 the patient underwent ultrasound-guided core biopsy of 2 areas of concern in the left breast both of which revealed fat necrosis with scarring chronic inflammation both were negative for malignancy. Her most recent mammogram is a bilateral screening mammogram on 11-01-22 which was BIRAD 2. Is not complaining of any new lumps masses or nodules of concern in either breast. Family history: 1. Father: Laryngeal cancer 2. Mother: Colon cancer 3. Patient: Possible ductal carcinoma in situ of the breast 4. 3 Paternal uncle: Lung cancer 5. maternal grandmother: bladder cancer 6. niece breast cancer at 43 Hormonal history: Menarche: 13 1 miscarriage, breast fed: yes, first born at 24 menopause: 38, partial hysterectomy prior BCP: 20 years hormones: following hysterectomy 20 years Surgical History: 1. Right breast lumpectomy 2. T&A 3. bilateral breast reduction 4. left knee partial noe cap removed 5. hysterctomy/ ovaries not removed 6. bronchoscope for chronic cough 7. right rotator cuff surgery Medical History: 1. HTN 2. mild asthma 3. high cholesterol 4. decreased memory 5. COVID vaccines (4) is waiting for the new one to come out Social History: smoke: none alcohol: none drugs: Occasional marijuana Review of systems: Constitutional: Negative Lungs: Mild asthma Heart: Hypertension GI: Negative : Status post hysterectomy done for bleeding no cancer Musculoskeletal: Mild arthritis Integument: Negative Psychiatric:anxiety since and son ; stopped medication about 5 months ago Objective - Vital Signs Vital signs: Vital Signs Temp 97.9 F 11/09/22 09:43 Pulse 67 11/09/22 09:43 Resp 17 11/09/22 09:43 BP 135/81 11/09/22 09:43 Pulse Ox 97 09/21/23 09:43 FiO2 Intake & Output 11/08/22 11/09/22 11/09/22 18:59 06:59 18:59 Weight 86.183 kg - Constitutional General appearance: Present: cooperative - EENT Eyes: Present: EOMI ENT: Present: hearing grossly normal - Neck Neck: Present: normal ROM - Respiratory Respiratory: bilateral: CTA - Cardiovascular Rhythm: regular Heart sounds: normal: S1, S2 - Gastrointestinal General gastrointestinal: Present: soft - Integumentary Integumentary: Present: normal turgor - Musculoskeletal Musculoskeletal: Present: gait normal - Psychiatric Psychiatric: Present: A&O x's 3, appropriate affect, intact judgment & insight - Additional findings Additional findings: Breast Exam: BRA; 44D Inspection: Bilateral reduction mammoplasty scars, bilateral grade 2 ptosis, scar right breast from resection of the atypical hyperplasia/questionable DCIS Palpation: Right breast: Multi-positional exam fibrocystic changes no dominant masses or nodules of concern Right axilla: No adenopathy of concern Left breast: Multi-positional exam fibrocystic changes no dominant masses or nodules of concern Left axilla: No adenopathy of concern Assessment and Plan Assessment: Impression: Prior right breast excision of atypical hyperplasia versus DCIS/she did not have any radiation therapy she had initial resection here and then reexcision at [facility] this was done in 2004 Bilateral mammogram 913- BIRAD 2 Plan: bilateral mammogram 3 BIRAD 2 repeat bilateral mammogram in 1 year with appointment CC: Dr. Megan Reese Additional CC's: Tirso Reese
== END ==
LOC: WWCWWP 09:38
PROVIDERS: ATTEND Surgery
DX: N60.19 Diffuse cystic mastopathy of unspecified breast (principal); E78.00 Pure hypercholesterolemia, unspecified; I10 Essential (primary) hypertension; J45.909 Unspecified asthma, uncomplicated; Z85.3 Personal history of malignant neoplasm of breast; Z91.048 Other nonmedicinal substance allergy status; Z91.011 Allergy to milk products; Z79.899 Other long term (current) drug therapy

== ENCOUNTER → 2023-11-05 | Outpatient (CLI) | payer MEDICARE ==
--- NOTE | 2023-11-05 16:14 | MM ---
Reason for Exam: Screening (asymptomatic). Last screening mammogram was performed 12 month(s) ago. Patient History: Menarche at age 12. First Full-Term at age 23. Hysterectomy at age 37. Postmenopausal. Patient used Estrogen for 15 years. Reduction on the Right side. Reduction on the Left side. 2014, Benign Stereotactic Core Biopsy on the right side. 04/18/2018, Benign Core Biopsy on the left side. 04/18/2018, Benign Core Biopsy on the left side. 08/31/2004, High risk Core Biopsy on the right side. Maternal aunt had breast cancer at or over age 50. Risk Values: Loli 5 year model risk: 2.4%. NCI Lifetime model risk: 5.8%. Prior Study Comparison: 08/20/2020 Bilateral Screening Mammogram, [facility]. 10/31/2021 Bilateral MG 3D screening mammo w/cad, [facility]. 11/01/2022 Bilateral MG 3D screening mammo w/cad, [facility]. Tissue Density: There are scattered areas of fibroglandular density. Findings: Analyzed By CAD. Pattern appears stable. Postbiopsy changes are within the right breast. Core markers are within bilateral breasts. Significant interval changes are evident. No suspicious groups of microcalcifications, spiculated or lobular masses, architectural distortion or other secondary signs of malignancy are mammographically apparent. Overall Assessment: Benign, BI-RAD 2 Management: Screening Mammogram of both breasts in 1 year. A negative mammogram report should not preclude additional follow up of suspicious palpable abnormalities. Patient should continue monthly self breast exam. A clinical breast exam by your physician is recommended on an annual basis and results should be correlated with mammographic findings. Note on Loli scores and lifetime risk: 1. A Loli score greater than 3% is considered moderate risk. If this is the case, consider specialist referral to assess eligibility for a risk reducing agent. 2. If overall lifetime risk for the development of breast cancer is 20% or higher, the patient may qualify for future screening with alternating mammogram and breast MRI. [facility], , 11/05/2023 4:11 PM. Electronically signed and approved by: Marques Sullivan D.O. Radiologis
== END | disposition home or self-care (01) ==
LOC: RADMAMWWP 09:50
PROVIDERS: ATTEND Surgery
DX: Z12.31 Encounter for screening mammogram for malignant neoplasm of breast
CPT/HCPCS: 77063; 77067

== ENCOUNTER → 2023-11-09 | Outpatient (CLI) | payer MEDICARE ==
--- NOTE | 2023-11-09 11:11 | P.PN ---
Subjective Progress Note Date: 11/09/23 Principal diagnosis: fibrocystic disease 10/22/23 fibrocystic breast disease Lucille is a 73-year-old white female who presents for breast evaluation. She underwent bilateral breast reduction in 1989. 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 She had wide excision of this area and then a repeat exploratory excision after being seen for a second opinion, the reexcision was done at [place]. She then took tamoxifen for 5 years. She did not have any radiation to the breast. She has had additional core biopsies since that time which have always been benign. March 2018 the patient underwent ultrasound-guided core biopsy of 2 areas of concern in the left breast both of which revealed fat necrosis with scarring chronic inflammation both were negative for malignancy. Her most recent mammogram is a bilateral screening mammogram on 11-05-23 which was BIRAD 2. She is not complaining of any new lumps masses or nodules of concern in either breast. Family history: 1. Father: Laryngeal cancer 2. Mother: Colon cancer 3. Patient: Possible ductal carcinoma in situ of the breast 4. 3 Paternal uncle: Lung cancer 5. maternal grandmother: bladder cancer 6. niece breast cancer at 43 Hormonal history: Menarche: 13 1 miscarriage, breast fed: yes, first born at 24 menopause: 38, partial hysterectomy prior BCP: 20 years hormones: following hysterectomy 20 years Surgical History: 1. Right breast lumpectomy 2. T&A 3. bilateral breast reduction 4. left knee partial noe cap removed 5. hysterctomy/ ovaries not removed 6. bronchoscope for chronic cough 7. right rotator cuff surgery Medical History: 1. HTN 2. mild asthma 3. high cholesterol 4. decreased memory 5. COVID vaccines (4) is waiting for the new one to come out Social History: smoke: none alcohol: none drugs: Occasional marijuana Review of systems: Constitutional: Negative Lungs: Mild asthma Heart: Hypertension GI: Negative : Status post hysterectomy done for bleeding no cancer Musculoskeletal: Mild arthritis Integument: Negative Psychiatric:anxiety since and son ; stopped medication about 5 months ago Objective - Constitutional General appearance: Present: cooperative - EENT Eyes: Present: EOMI ENT: Present: hearing grossly normal - Neck Neck: Present: normal ROM - Respiratory Respiratory: bilateral: CTA - Cardiovascular Rhythm: regular Heart sounds: normal: S1, S2 - Integumentary Integumentary: Present: normal turgor - Musculoskeletal Musculoskeletal: Present: gait normal - Psychiatric Psychiatric: Present: A&O x's 3, appropriate affect, intact judgment & insight - Additional findings Additional findings: Breast Exam: BRA; 44D Inspection: Bilateral reduction mammoplasty scars, bilateral grade 2 ptosis, scar right breast from resection of the atypical hyperplasia/questionable DCIS Palpation: Right breast: Multi-positional exam fibrocystic changes no dominant masses or nodules of concern Right axilla: No adenopathy of concern Left breast: Multi-positional exam fibrocystic changes no dominant masses or nodules of concern Left axilla: No adenopathy of concern Assessment and Plan Assessment: Impression: Prior right breast excision of atypical hyperplasia versus DCIS/she did not have any radiation therapy she had initial resection here and then reexcision at [place] this was done in 2004 Bilateral mammogram 916-24 BIRAD 2, personally reviewed Plan: repeat bilateral mammogram October 2024 with appointment at that time follow up sooner any concerns CC: Dr. Megan Reese
[2023-11-09 11:42] VITALS: BP 147/90; PULSE 69; RESP 16; TEMP 97.4
== END ==
LOC: WWCWWP 10:31
PROVIDERS: ATTEND Surgery
DX: R92.8 Other abnormal and inconclusive findings on diagnostic imaging of breast (principal); N60.11 Diffuse cystic mastopathy of right breast; N60.12 Diffuse cystic mastopathy of left breast; Z80.3 Family history of malignant neoplasm of breast; Z91.048 Other nonmedicinal substance allergy status; Z91.011 Allergy to milk products